=== PATIENT | female | born 1965 | race Caucasian/White ===

== ENCOUNTER 2022-02-19 11:22 | Outpatient (CLI) | payer OTHER, SELFPAY ==
[2022-02-19 21:34] LABS: Chloride* 106 mmol/L (96-114); Sodium* 138 mmol/L (135-149)
[2022-02-19 21:35] LABS: Potassium* 4.6 mmol/L (3.6-5.1)
[2022-02-19 21:37] LABS: Blood Urea Nitrogen* 20 mg/dL (7-30); Carbon Dioxide* 27 mmol/L (20-32); Creatinine* 0.7 mg/dL (0.5-1.5); Estimated Glomerular Filt Rate 100.19; Glucose* 99 mg/dL (60-115); Lipase* 29 U/L (23-300)
[2022-02-19 21:38] LABS: Calcium* 9.9 mg/dL (8.4-10.6)
[2022-02-21 09:29] LABS: Cholesterol* 277 mg/dL (90-199); HDL Cholesterol* 63 mg/dL (>=50); LDL Cholesterol Calculated 174 mg/dL (<100); Triglycerides* 201 mg/dL (40-149)
== END 2022-02-19 11:23 | disposition home or self-care (01) ==
LOC: RAD 11:27
PROVIDERS: PCP Physician Assistant Medical; Visit Provider Physician Assistant Medical
DX: R00.2 Palpitations (principal)
CPT/HCPCS: 36415; 80048; 80061; 83690; 84443